=== PATIENT | female | born 1990 | race Caucasian/White ===

== ENCOUNTER 2021-08-08 09:42 | Inpatient (IN) | payer BC ==
[2021-08-08] MEDS ORDERED: Ondansetron PF 4 MG/2 ML Vial ONE ×2 (10:21→12:37)
[2021-08-08] MEDS ORDERED: Morphine PF 10 MG/10 ML VIAL ONE (10:21)
[2021-08-08] MEDS ORDERED: Metoclopramide HCl 10 MG/2 ML VIAL ONE ×2 (10:21→12:37)
[2021-08-08] MEDS ORDERED: Ketorolac Tromethamine 30 MG/ML VIAL ONE ×2 (10:21→12:37)
[2021-08-08] MEDS ORDERED: Dexamethasone 4 mg/ml Vial ONE (10:21)
[2021-08-08] MEDS ORDERED: Phenylephrine 40 MG/NS 250 ML 250 ML ONE (10:21)
[2021-08-08] MEDS ORDERED: Oxytocin 10 UNITS/ML VIAL ONE ×2 (10:22→12:38)
[2021-08-08 10:54] VITALS: BMI 41.5
[2021-08-08] MEDS ORDERED: Famotidine/PF 20 mg/2ml Vial SLOW IVP PRN (11:02)
[2021-08-08] MEDS ORDERED: ceFAZolin 2 GM/Dextrose 50 ML 2 GM in Premix Bag 1 BAG IVPB SCH (11:02)
[2021-08-08] MEDS ORDERED: Lorazepam 2 MG/ML VIAL SLOW IVP PRN (11:02)
[2021-08-08] MEDS ORDERED: Calcium Gluc 4.6 MEQ/10 ML (100 MG/ML) SLOW IVP PRN (11:02)
[2021-08-08] MEDS ORDERED: Labetalol HCl 100 MG/20 ML VIAL SLOW IVP PRN ×2 (11:02)
[2021-08-08] MEDS ORDERED: hydrALAZINE 20 MG/ML VIAL SLOW IVP PRN ×3 (11:02)
[2021-08-08] MEDS ORDERED: Bicitra 30 ML UDCUP PO PRN (11:02)
[2021-08-08] MEDS ORDERED: Promethazine HCl 25 MG/ML VIAL IM PRN ×3 (11:02→14:39)
[2021-08-08] MEDS ORDERED: Ondansetron PF 4 MG/2 ML Vial IVP PRN ×3 (11:02→14:39)
[2021-08-08] MEDS ORDERED: NIFEdipine XL 30 MG TAB PO SCH (11:15)
[2021-08-08] MEDS ORDERED: Labetalol HCl 200 MG TAB PO SCH (11:15)
[2021-08-08] MEDS ORDERED: Naloxone HCl 0.4 mg/ml Vial IVP PRN ×4 (11:20→14:39)
[2021-08-08] MEDS ORDERED: Promethazine HCl 25 MG SUPP PR PRN ×2 (11:20→14:39)
[2021-08-08] MEDS ORDERED: Fentanyl 100 MCG/2 ML VIAL SLOW IVP PRN ×2 (11:20→14:39)
[2021-08-08] MEDS ORDERED: Ondansetron HCl/PF 4 MG/2 ML Vial IVP PRN ×2 (11:20→14:39)
[2021-08-08] MEDS ORDERED: Meperidine HCl/PF 25 MG/ML VIAL SLOW IVP PRN ×2 (11:20→14:39)
[2021-08-08] MEDS ORDERED: Moisturizing Cream (Eucerin) 113 GM JAR TOP PRN ×2 (11:20→14:39)
[2021-08-08] MEDS ORDERED: Naloxone HCl 0.4 mg/ml Vial IV PRN ×2 (11:20→14:39)
[2021-08-08] MEDS ORDERED: diphenhydrAMINE 50 MG/ML VIAL IVP PRN ×2 (11:20→14:39)
[2021-08-08] MEDS ORDERED: Communication Order-Pharmacy FS SCH ×2 (11:30→14:45)
[2021-08-08] MEDS ORDERED: Fentanyl 100 MCG/2 ML VIAL ONE (11:39)
[2021-08-08] MEDS ORDERED: Dexmedetomidine 200 MCG/2 ML VIAL ONE (11:40)
[2021-08-08] MEDS ORDERED: Dextrose 50% Abboject 50 ML SYRINGE ONE (11:46)
[2021-08-08 12:10] LABS: SARS-CoV-2 NAA Rapid Test Not Detected (NotDetected)
[2021-08-08 13:57] LABS: RapidComm Collect By NURSE
[2021-08-08 14:32] LABS: Hemoglobin 10.1 g/dL (12.0-15.5); Mean Corpuscular HGB CONC 31.9 g/dL (32.0-36.0); Mean Corpuscular Hemoglobin 25.6 pg (27.0-33.0); Mean Corpuscular Volume 80.3 fl (81.6-98.3); Mean Platelet Volume 13.6 fl (7.4-10.4); Platelet Count 233 10x3/uL (150-450); Red Blood Cell (RBC) Count 3.95 10x6/uL (3.90-5.03); White Blood Cell (WBC) Count 11.2 10x3/uL (3.5-10.5)
[2021-08-08 14:49] LABS: HIV (1/2) Antibody/Antigen Non-Reactive (NonReactive); HIV 1/2 INDEX 0.07 S/CO (<1.00); Hep B Surf Ag Non-Reactive S/CO (NonReactive); Syphilis Antibody Nonreactive (Nonreactive); Syphilis Antibody Index 0.04 S/CO (<1.00 Non-Reactive)
[2021-08-08 14:55] LABS: HBSAg Index 0.16 S/CO (0-0.99)
[2021-08-08] MEDS ORDERED: Bisacodyl 10 MG SUPP PR PRN (16:37)
[2021-08-08] MEDS ORDERED: Boostrix 0.5 ML (Tdap) VIAL IM ONE (16:37)
[2021-08-08] MEDS ORDERED: NS w/ Oxytocin 30 units 500 ML IV SCH (16:37)
[2021-08-08] MEDS ORDERED: Lanolin Ointment 7 GM TUBE TOP PRN (16:37)
[2021-08-08] MEDS ORDERED: Misoprostol 200 MCG TAB PR PRN (16:37)
[2021-08-08] MEDS: Lactated Ringer's 1,000 ML IV SCH ×2 (17:11→19:59)
[2021-08-08] MEDS ORDERED: Ketorolac Tromethamine 30 MG/ML VIAL IVP PRN (19:00)
[2021-08-08] MEDS: Ketorolac Tromethamine 30 MG/ML VIAL IVP PRN (19:59)
[2021-08-08] MEDS: Simethicone Chewable 80 MG TAB PO PRN (20:06)
[2021-08-08] MEDS: Labetalol HCl 200 MG TAB PO SCH (21:14)
[2021-08-08] MEDS: Docusate 100 MG CAP PO SCH (21:15)
[2021-08-08] MEDS ORDERED: Fentanyl 100 MCG/2 ML VIAL SLOW IVP SCH (22:30)
[2021-08-09] MEDS ORDERED: Lorazepam 2 MG/ML VIAL SLOW IVP PRN (02:45)
[2021-08-09] MEDS: traMADol HCl 50 MG TAB PO PRN ×3 (02:58→16:14)
[2021-08-09] MEDS: Simethicone Chewable 80 MG TAB PO PRN ×4 (03:02→22:17)
[2021-08-09 04:19] LABS: Hemoglobin 8.7 g/dL (12.0-15.5); Mean Corpuscular HGB CONC 31.6 g/dL (32.0-36.0); Mean Corpuscular Hemoglobin 25.8 pg (27.0-33.0); Mean Corpuscular Volume 81.6 fl (81.6-98.3); Mean Platelet Volume 12.5 fl (7.4-10.4); Platelet Count 179 10x3/uL (150-450); RBC Distribution Width 18.7 % (11.5-14.5); Red Blood Cell (RBC) Count 3.37 10x6/uL (3.90-5.03); White Blood Cell (WBC) Count 14.5 10x3/uL (3.5-10.5)
[2021-08-09] MEDS: Lactated Ringer's 1,000 ML IV SCH ×3 (04:31→20:26)
[2021-08-09] MEDS: Ketorolac Tromethamine 30 MG/ML VIAL IVP PRN (05:47)
[2021-08-09] MEDS: Docusate 100 MG CAP PO SCH ×2 (09:23→22:17)
[2021-08-09] MEDS: Prenatal Vitamin 1 TAB PO SCH (09:23)
[2021-08-09] MEDS: NIFEdipine XL 30 MG TAB PO SCH (09:25)
[2021-08-09] MEDS: Labetalol HCl 200 MG TAB PO SCH ×2 (09:26→22:17)
[2021-08-09] MEDS: Ferrous Sulfate 325 MG TAB PO SCH (22:17)
[2021-08-09] MEDS: Ibuprofen 800 MG TAB PO SCH (22:18)
[2021-08-10] MEDS: Lactated Ringer's 1,000 ML IV SCH ×4 (05:19→22:13)
[2021-08-10] MEDS: Simethicone Chewable 80 MG TAB PO PRN ×4 (05:20→21:12)
[2021-08-10] MEDS: Ibuprofen 800 MG TAB PO SCH ×3 (05:20→21:12)
[2021-08-10] MEDS: Labetalol HCl 200 MG TAB PO SCH ×2 (08:54→21:12)
[2021-08-10] MEDS: NIFEdipine XL 30 MG TAB PO SCH (08:54)
[2021-08-10] MEDS: Prenatal Vitamin 1 TAB PO SCH (08:55)
[2021-08-10] MEDS: Docusate 100 MG CAP PO SCH ×2 (08:55→21:12)
[2021-08-10] MEDS: Ferrous Sulfate 325 MG TAB PO SCH ×2 (08:55→21:11)
[2021-08-10] MEDS: traMADol HCl 50 MG TAB PO PRN (09:00)
[2021-08-10 20:49] VITALS: TEMP 97.8
[2021-08-11] MEDS: Ibuprofen 800 MG TAB PO SCH ×2 (06:08→13:51)
[2021-08-11] MEDS: Simethicone Chewable 80 MG TAB PO PRN (06:16)
[2021-08-11] MEDS: NIFEdipine XL 30 MG TAB PO SCH (08:41)
[2021-08-11] MEDS: Docusate 100 MG CAP PO SCH (08:41)
[2021-08-11] MEDS: Ferrous Sulfate 325 MG TAB PO SCH (08:42)
[2021-08-11] MEDS: Prenatal Vitamin 1 TAB PO SCH (08:42)
[2021-08-11] MEDS: Labetalol HCl 200 MG TAB PO SCH (08:42)
[2021-08-11 08:44] VITALS: BP 122/69
[2021-08-14] MEDS ORDERED: Ibuprofen 800 MG TAB PO SCH (06:00)
== END 2021-08-11 17:45 | disposition home or self-care (01) | DRG 786 ==
LOC: CSHLD 09:42 → CSHPP 16:44
PROVIDERS: ADMIT Obstetrics & Gynecology; ATTEND Obstetrics & Gynecology
PROC: 10D00Z1 Extraction of Products of Conception, Low, Open Approach (ICD-10-PCS; principal; 2021-08-08)
DX: O32.1XX0 Maternal care for breech presentation, not applicable or unspecified (principal); O24.02 Pre-existing type 1 diabetes mellitus, in childbirth; O13.4 Gestational [pregnancy-induced] hypertension without significant proteinuria, complicating childbirth; O99.02 Anemia complicating childbirth; D64.9 Anemia, unspecified; E10.9 Type 1 diabetes mellitus without complications; O76 Abnormality in fetal heart rate and rhythm complicating labor and delivery; Z20.822 Contact with and (suspected) exposure to COVID-19; Z37.0 Single live birth; Z79.4 Long term (current) use of insulin; Z90.49 Acquired absence of other specified parts of digestive tract; Z98.890 Other specified postprocedural states; Z79.82 Long term (current) use of aspirin; Z79.899 Other long term (current) drug therapy; Z88.2 Allergy status to sulfonamides; Z91.040 Latex allergy status; Z3A.37 37 weeks gestation of pregnancy
CPT/HCPCS: 82805; 85027; 86780; 86850; 86900; 86901; 87340; 87389; J0690; J1100; J1885; J2274; J2405; J2590; J2765; J3010; J7120; S0028; U0002